=== PATIENT | female | born 1980 | race Caucasian/White ===

== ENCOUNTER → 2020-09-14 14:22 | Outpatient (BNVA) | payer BC, OTHER, SELFPAY | PROVIDERS: Visit Provider Psychiatry & Neurology Psychiatry | DX: F43.12 Post-traumatic stress disorder, chronic (principal); F33.1 Major depressive disorder, recurrent, moderate | CPT/HCPCS: 99204 ==

== ENCOUNTER → 2020-10-16 08:18 | Outpatient (BNVA) | payer BC, OTHER, SELFPAY | PROVIDERS: Visit Provider Psychiatry & Neurology Psychiatry | DX: F33.1 Major depressive disorder, recurrent, moderate (principal); F43.12 Post-traumatic stress disorder, chronic | CPT/HCPCS: 99214 ==

== ENCOUNTER → 2020-12-11 07:05 | Outpatient (BNVA) | payer BC, SELFPAY | PROVIDERS: Visit Provider Psychiatry & Neurology Psychiatry | DX: F33.1 Major depressive disorder, recurrent, moderate (principal); F43.12 Post-traumatic stress disorder, chronic | CPT/HCPCS: 99213 ==

== ENCOUNTER 2021-03-07 09:34 | Outpatient (CLI) | payer BC, SELFPAY ==
--- NOTE | 2021-03-07 10:07 | FL_ITS ---
WS: [id number] Single contrast UPPER GI EXAMINATION HISTORY: Z98.84 - Bariatric surgery status COMPARISON: None available. FLUOROSCOPY TIME: 2.5 minutes. Barium mixture traversed normally through the esophagus with the exception of very mild tertiary cont ractions in the distal esophagus. Orientation of the gastric band is normal. There is a reducible sma ll to moderate hiatal hernia intermittently visualized throughout this examination. No reflux. Stomach distended normally. Duodenal bulb was normal. FL/FL upper GI w air* [id number] IMPRESSION: 1. Normal orientation of the gastric band. 2. Intermittently visualized small to moderate hiatal hernia.
== END 2021-03-07 09:35 | disposition home or self-care (01) ==
PROVIDERS: Visit Provider Surgery
DX: Z98.84 Bariatric surgery status (principal); K44.9 Diaphragmatic hernia without obstruction or gangrene
CPT/HCPCS: 74246

== ENCOUNTER → 2021-03-21 08:44 | Outpatient (BNVA) | payer BC, MEDICAID, SELFPAY | PROVIDERS: Visit Provider Surgery | DX: Z11.52 Encounter for screening for COVID-19 (principal); Z20.822 Contact with and (suspected) exposure to COVID-19 | CPT/HCPCS: 87635 ==

== ENCOUNTER 2021-03-26 10:35 | Day surgery (SDC) | payer BC, MEDICAID, SELFPAY ==
[2021-03-25 15:19] VITALS: BMI 51.2
[2021-03-26] VITALS (8 sets, daily range): BP systolic 125–137; BP diastolic 65–94; PULSE 70–97; RESP 14–25; TEMP 36.6–37; O2SAT 93–100
[2021-03-26 11:08] LABS: OR HCG Qualitative Urine Negative (Negative)
[2021-03-26] MEDS: sodium chloride 0.9% 1,000 ML 30 ML IV (11:26)
--- NOTE | 2021-03-26 12:26 | ANES.PREANE2 ---
Pre-Anesthetic Assessment Pre-Anesthetic Assessment: Height/Weight: Height 1.54 m Weight 121.109 kg Temp Pulse Resp BP Pulse Ox 98.2 F 81 19 H 125/78 96 03/26/21 11:08 03/26/21 11:08 03/26/21 11:08 03/26/21 11:08 03/26/21 11:08 Preop Diagnosis: Complications related to gastric band Proposed Procedure: Operation Date: 03/26/21 12:25 Proposed Procedures s EGD(Not Applicable) - Doyle Santos MD p Gastric Band Adjustment(Not Applicable) - Doyle Santos MD Was Beta Lily taken within 24 hours: N/A Was Clonidine taken within 24 hours: N/A Last intake: Intake Last Liquid Date 03/25/21 Last Liquid Time 23:00 Last Solid Date 03/25/21 Last Solid Time 23:00 Social: Social History: Tobacco Comment: Smoked this am. Exam: Pre-Anes Outpt Exam: alert, oriented x 3, clear to auscultation bilaterally and regular rate & rhythm Airway: Submandibular: WNL Cervical ROM: WNL MP: 1 History/ROS: No significant complaints Metabolic: Metabolic: Morbid obesity Neuropsych: Neuropsych: Depression Anesthetic Plan: ASA status: 3 Anesthesia: Anesthesia Evaluation and General Risk of > 500 ml blood loss (7ml/kg in children): No Meds/Allergies Current Medications: Current Medications Generic Name Dose Route Start Last Admin Trade Name Freq PRN Reason Stop Dose Admin Sodium Chloride 1,000 mls @ 30 ml s/hr 03/26/21 11:00 03/26/21 11:26 Sodium Chloride 0.9% IV 03/27/21 10:59 30 mls/hr .Q24H RADHA Administration PFSH Anesthesia PFSH: Surgical History Hx of laparoscopic gastric banding (~2011) Social History Smoking and tobacco status: never smoked Quit status (tobacco): has quit using tobacco Year quit tobacco: 2020 Second hand smoke exposure: Yes Female Reproductive History: Date of last menstrual period: 03/25/21 Data Anesthesia Other Labs: Laboratory Results - last 48 hr 03/26/21 10:51 Urine HCG, Qual Negative Cardiac Studies: No Data to Display
--- NOTE | 2021-03-26 13:21 | P.HP_ITS ---
Same Day Surgery H&P Indication for Procedure/HPI DATE OF PROCEDURE: March 26, 2021 CHIEF COMPLAINT/INDICATIONFOR SURGICAL PROCEDURE: I have issues with the gastric band PREOP DIAGNOSIS: Complications related to gastric band PLANNED PROCEDRUE: Operation Date: 03/26/21 12:25 Proposed Procedures s EGD(Not Applicable) - Doyle Santos MD p Gastric Band Adjustment(Not Applicable) - Doyle Santos MD 02/06/2021 This is a pleasant 40 years old female patient morbidly obese, gives history of laparoscopic gastric band placed back in 2011, with initial weight of 260 pounds and she lost about 75 pounds and gained 95 pounds with a current weight of 259 and a BMI of 39.7. The patient had her surgery in [place] and about 5 m onths ago she had her band adjusted. And to her understanding all the fluid has been removed Obesity class III (equal or greater than 40) Obesity related comorbidities in the form of major depressive disorder, recurrent, moderate and chronic posttraumatic stress disorder. Previous Bariatric surgery laparoscopic adjustable gastric band placement Quality of life affected in a nonpositive way Patient comes today to address her issues related to gastric band, potential interest in explantation of her band. 03/26/2021 interim history Patient comes today for adjustment of the gastric band and esophagogastroduodenoscopy with possible biopsy ROS All systems have been reviewed negative except as per the above or per problem list Medications/Allergies* Home Medications Medication Instructions Recorded Confirmed Type biotin 5,000 mcg disintegrating 10,000 mcg PO DAILY 08/07/20 03/26/21 History tablet gabapentin 100 mg capsule 600 mg PO BEDTIME cap 02/06/21 03/26/21 History prazosin 5 mg PO BEDTIME 03/25/21 03/26/21 History Allergies/Adverse Reactions Allergy/AdvReac Type Severity Reaction Status Date / Time acetaminophen [From Vicodin] Allergy Severe makes her Verified 03/26/21 13:22 sick hydrocodone [From Vicodin] Allergy Severe makes her Verified 03/26/21 13:22 sick Current Medications: Generic Name Dose Route Start Last Admin Trade Name Freq PRN Reason Stop Dose Admin Sodium Chloride 1,000 mls @ 30 mls/hr 03/26/21 11:00 03/26/21 11:26 Sodium Chloride 0.9% IV 03/27/21 10:59 30 mls/hr .Q24H RADHA Administration Pertinent History/Comorbid Conditions* Surgical History (Updated 02/08/21 @ 10:59 by Doyle Santos MD) Hx of laparoscopic gastric banding (~2011) Social History Smoking and tobacco status: never smoked Quit status (tobacco): has quit using tobacco Year quit tobacco: 2020 Second hand smoke exposure: Yes Pertinent Exam Findings alert, oriented x 3, clear to auscultation bilaterally, regular rate & rhythm and procedure specific exam findings (Abdominal examination nontender nondistended soft) Danuta is well palpable at the epigastric area Recommendations Surgery/Procedure today (Esophagogastroduodenoscopy with possible biopsy and gastric band) Other Plans: Gastric band adjustment Coding Level of Care Code Acute Drill Press Operator For Metal for Chg Toña
--- NOTE | 2021-03-26 14:27 | PM.OP ---
Operative Report Date of procedure: March 26, 2021 Pre-op Diagnosis: Complications related to gastric band Post-op diagnosis: same Post-op Findings: GE junction at 37 with GERD changes to the level of 36 cm from the incisors Prepyloric gastritis Procedure Done: 1-Adjustment of gastric band 2-Esophagogastroduodenoscopy with biopsy Specimens removed/disposition: Biopsy from the antrum for CLOtest Surgeon: Doyle Santos Service Coordinator Elderly Facility: angiography technologist Sarah pbx technician [place] Anesthesia: MAC (Power Cortes and Dr. Proctor) Estimated blood loss (mL): 0 Complications: Bronchospasm please see see full report per anesthesia Condition: stable Disposition: same day Brief History: Repeated vomiting related to gastric band Procedure: Patient was identified in holding area, was taken to the operating room and was placed in supine position \Time-out was done verifying the patient's name,all were in agreement After prep and drape of the upper abdomen under sterile technique, I used a long Rocha needle, I was able to aspirate about 0.1 mL of fluid from the port.A Band-Aid was applied onto the site of introduction of the Rocha needle,there were no complications. Patient was then placed in left lateral position and IV propofol was infused by the anesthesia provider, a bite block was placed to protect patient's oral cavity by the anesthesia provider ,followed by introduction of diagnostic EGD via the mouth all the way to the second part of the duodenum. Patient continuously monitored with bus monitor. GE junction was at 37 cm from the incisors with some esophagitis changes up to 36 cm grade 1 esophagitis. The gastric band located at 40 cm from the incisors. Prepyloric gastritis mild were seen and antral biopsy was done by cold forceps and sent for CLOtest.Rest of the examination was within normal limits. During the procedure patient had a component of bronchospasm per anesthesia description yet she recovered from that. Please see anesthesia report with that regard Otherwise patient tolerated the procedure well And was taken to the recovery area in stable condition I was present for the whole entire procedure Associated Problem List Diagnoses (1) Gastritis:
[2021-03-26] MEDS: racepinephrine 0.5 mL Neb INHALATION (14:34)
[2021-03-26] MEDS: ipratropium-albuterol 3 mL Neb INHALATION (14:47)
--- NOTE | 2021-03-26 16:00 | SUR.PHASEI ---
1434 PT TO PACU SLEEPY ON LT SIDE COUGHING AND GAGGING, LARGE AMT SPUTUM PER NASAL TRUMPET, TRUMPET OUT ON ARRIVAL AND SUCTION PER ROSAURA TO NOSE AND THROAT, PT PLACED ON RACEMIC EPI NEB PER DR POOLE'S ORDER AND TO FOLLOW WITH DUONEB TX PT ALERT AND RESP EVEN AND UNLABORED VSS ABD SOFT WITH BANDAID D/I PT APPEARS IN NO DISTRESS, SOME INSP AUDIBLE WHEEZES NOTED 1503 PT AWAKE ALERT DENIES PAIN RESP EVEN UNLABORED NO WHEEZES NOTED VSS PT HANDOFF AT BEDSIDE TO OPS NURSE
--- NOTE | 2021-03-26 16:17 | ANE.PACU2 ---
Inpatient post-anesthesia follow up: Airway intact: Yes Vital signs: Temperature 98.1 F Pulse Rate 83 Respiratory Rate 18 Blood Pressure 137/72 Pulse Oximetry 96 Oxygen Delivery Me thod Room Air Oxygen Flow Rate 8 Fraction of Inspir ed Oxygen Hydration adequate: Yes Nausea and vomiting: No Pain level: 1 Mental status: Baseline
[2021-04-02 08:43] LABS: H. Pylori / CLO Test Negative
== END 2021-03-26 16:10 | disposition home or self-care (01) ==
PROVIDERS: Student in an Organized Health Care Education/Training Program; Visit Provider Surgery
PROC: 0DJ08ZZ Inspection of Upper Intestinal Tract, Via Natural or Artificial Opening Endoscopic (ICD-10-PCS; CPT 43235; principal; 2021-03-26 12:15)
PROC: (CPT 43999; 2021-03-26 12:15)
DX: K95.09 Other complications of gastric band procedure (principal); K29.70 Gastritis, unspecified, without bleeding; E66.01 Morbid (severe) obesity due to excess calories; Z68.43 Body mass index [BMI] 50.0-59.9, adult; F33.9 Major depressive disorder, recurrent, unspecified; Z87.891 Personal history of nicotine dependence
CPT/HCPCS: 43239; 43999; 84703; 87077; J2250; J2704; J3010; J7030